=== PATIENT | male | born 2000 | race Caucasian/White ===

== ENCOUNTER 2023-02-20 10:24 | Emergency (ER) | payer OTHER, SELFPAY ==
[2023-02-20 10:25] VITALS: BP 173/85; PULSE 92; RESP 16; TEMP 36.8; O2SAT 98; BMI 33.8
--- NOTE | 2023-02-20 10:27 | NURSING ---
NO OLD EKGS
--- NOTE | 2023-02-20 10:44 | EDS_ITS ---
HPI History of Present Illness Chief Complaint: Chest Pain Detail of Chief Complaint: Typical, nonexertional left-sided chest pain. Resolved. Informant: patient Onset/Context/Timing Onset: Today Activity at onset: gradual Timing: Intermittent Quality: Positive for Sharp Location: Left Chest Current Severity: Gone Maximum Severity: Mild Worsened By: Nothing Relieved By: Nothing Associated Symptoms: Negative for Nausea, Vomiting, Diaphoresis, Dyspnea, Cough, Fever, Lightheadedness, Acid Reflux or Palpitations Narrative Narrative: 22-year-old male history of gynecomastia no other medical problems. 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 It is since resolved. It occurred about 30 minutes ago and was fleeting. Not associated with exertion. No shortness of breath. No cardiac history. No history of DVT or PE nor any risk factors. No leg pain or swelling. No hemoptysis. Currently symptom-free. He was concerned he was having a heart attack. He denies any IV drug use. Prior Similar Symptoms: Yes Recent Illness/Hospitalization: No CVD Risk Factors: Negative for Hypertension, Diabetes, Hypercholesterolemia or Family History 1' </=55 PE Risk Factors: Negative for Recent Travel/Surgery, Recent Immobilization, Prior DVT or PE, Cancer or OCP + Smoking + >/=35 TAD Risk Factors: Negative for Marfan's Syndrome PFSH PFSH Medical History no medical history no medical history Home Medications escitalopram oxalate 20 mg tablet (Lexapro) 20 mg PO DAILY 02/20/23 [History Last Taken 02/20/23] famotidine 20 mg tablet (Pepcid) 20 mg PO DAILY 02/20/23 [History Last Taken Unknown] Allergy/AdvReac Type Severity Reaction Status Date / Time No Known Allergies Allergy Verified 02/20/23 10:25 Family History no significant family his Surgical History no surgical history Social History Smoking Status: Never smoker ROS ROS ED ROS Narrative Denies recent illness. No recent exertional dyspnea or exertional chest pain. Review of Systems ROS Unobtainable: Denies due to encephalopathy Constitutional Constitutional ED: Denies chills or fever(s) ENT ENT ED: Denies ear pain Cardiovascular Cardiovascular: Reports as per HPI and chest pain; Denies palpitations or racing heartbeat Respiratory/Chest Respiratory/Chest: Denies cough, dyspnea or dyspnea on exertion Gastrointestinal Gastrointestinal: Denies abdominal pain, diarrhea, nausea or vomiting Genitourinary Genitourinary ED: Denies dysuria or hematuria Musculoskeletal Musculoskeletal: Denies arthralgias, back pain or myalgias Integumentary Denies abscess Neurologic Neurologic: Denies headache(s) Psychiatric Psychiatric: Denies anxiety Endocrine Endocrinology: Denies cold intolerance Hematologic/Lymphatic Hematologic/Lymphatic: Denies easy bleeding, easy bruising or lymphadenopathy Allergic/Immunologic Allergic/Immunologic ED: Denies mouth swelling, tongue swelling or urticaria EXAM Physical Exam Narrative Exam Narrative: Well-appearing 22-year-old male. Vital signs stable afebrile. Initial blood pressure is elevated 173/85. Pulse ox 90% on room air no hypoxia. H EENT exam unremarkable. Neck nontender no JVD. Lungs clear to auscultation bilaterally. Heart regular rhythm no murmur. Chest wall nontender. Abdomen soft nontender. Back nontender. Moving all 4 extremities. 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 Dorsi plantarflexion intact. Equal symmetrical radial pulses. Calves are nontender without edema or cords. Neurologically is awake and alert with no focal motor deficits. Const Vital Signs: 02/20/23 10:25 02/20/23 10:52 02/20/23 10:54 Temperature 98.2 F 98.3 F Temperature Source Temporal Temporal Pulse Rate 92 63 Respiratory Rate 16 20 H Respiratory Effort Blood Pressure 173/85 H 151/78 H Blood Pressure Mean 114 102 Pulse Ox 98 98 Oxygen Delivery Method Room Air Room Air Room Air 02/20/23 10:55 Temperature Temperature Source Pulse Rate Respiratory Rate Respiratory Effort Normal Blood Pressure Blood Pressure Mean Pulse Ox Oxygen Delivery Method Positive well nourished and well developed; Negative for cachectic, contractures or unkempt General Appearance ED: well developed and NAD; Negative for unkempt, cachectic, contractures or pallor Nutritional Appearance: Negative for cachectic HEENT Reports moist mucous membranes normocephalic and atraumatic; Negative for trauma or tenderness Eyes PERRL and EOMs intact bilaterally General Eye ED: Negative for pale conjunctiva, scleral icterus or other Neck no lymphadenopathy, supple and no JVD General: Negative for tenderness Chest Wall inspection of chest normal and palpation of chest normal Chest: Negative for tenderness or other Resp normal respiratory effort and clear to auscultation bilaterally Effort and Inspection: Negative for respiratory distress Auscultation: Negative for rales, rhonchi or wheezes Cardio regular rate, regular rhythm, S1 normal heart sound, S2 normal heart sound and no murmurs Rate: Negative for bradycardia or tachycardic Rhythm: Negative for abnormal rhythm Peripheral Pulses: pulses 2+ throughout GI normal to inspection, nondistended, normoactive bowel sounds, soft to palpation, non-tender, non-distended and no masses Auscultation: Negative for hyperactive bowel sounds Palpation: Negative for splenomegaly, mass or other Rectal Exam: Negative for heme negative stool Back/Spine no CVA tenderness and no thoracic nor lumbar tenderness General Back: Negative for CVA tenderness Cervical Spine: Negative for cervical spine tenderness Extremity normal to inspection General Extremety ED: Negative for edema or pulses abnormal General Extremity: Negative for edema or pulses abnormal Neuro oriented x3 and CN's II-XII intact bilaterally Sensorium / Orientation: awake, alert, oriented to person, oriented to place and oriented to time; Negative for confused, lethargic or stuporous Motor Exam: strength 5/5 throughout Psych mental status grossly normal Appearance: Negative for unkempt Attitude: No agitated Mood & Affect: Negative for depressed, anxious or tearful Skin no rashes or lesions noted and no wounds General Skin Exam: Negative for jaundice or pallor Rashes: No rashes noted Trauma: Negative for abrasion or laceration Heart Score History: Slightly/Non-Suspicious Age: </= 45 years Risk Factors: No Risk Factors Troponin: </= Normal Limit Score: 0 MDM MDM MDM Narrative Medical decision making narrative: 22-year-old with atypical chest pain. Think this is cardiac. He will undergo a cardiac workup. No factors or history of DVT or PE. Repeat exam patient is doing well at 11:40 PM. He will be discharged home. Chest pain uncertain etiology. I do not think he needs any further testing. History & Record Review Discussion w/independent historian: Patient Additional record(s) reviewed:: Prior inpatient record, Prior outpatient record, Prior ED visit and Prior labs Lab Data Attestation: I reviewed the patient's lab results. Lab results narrative: CBC normal. White count of 6. H&H of 15 and 46. Platelets 226. Chest x-ray normal. Chemistries normal gap of 2 normal BUN of 8 creatinine 0.8. Glucose 105. Troponin 6. Labs: Laboratory Results - last 24 hr 02/20/23 10:47 WBC 6.3 RBC 5.34 Hgb 15.0 Hct 46.7 MCV 87.5 MCH 28.1 MCHC 32.1 RDW Std Deviation 39.0 RDW Coeff of Melonie 12.0 Plt Count 226 MPV 10.3 Immature Gran % (Auto) 0.300 Neut % (Auto) 66.4 Lymph % (Auto) 26.3 [place] % (Auto) 5.1 Eos % (Auto) 1.4 Baso % (Auto) 0.5 Absolute Neuts (auto) 4.2 Absolute Lymphs (auto) 1.66 Nucleated RBC % 0 Sodium 136 Potassium 4.2 Chloride 103 Carbon Dioxide 31.0 Anion Gap 2 L BUN 8 Creatinine 0.88 Estim Creat Clear Calc 167.34 Est GFR (MDRD) Af Amer 141 Est GFR (MDRD) Non-Af 116 BUN/Creatinine Ratio 9.1 L Glucose 105 Calcium 9.2 Troponin I High Sens 6 Radiography Chest X-Ray - ED: 1 View, Read by ED Physician, Read by Radiologist, Heart, Mediastinum, Bony Structures and No Acute Disease Diagnostic Testing: Clinical Impression(s) from Imaging Studies Chest X-Ray 02/20/23 11:00 IMPRESSION: Normal x-ray examination of the chest. Electronically Signed: Nilton Ann MD at 11:26 EST Reading Location ID and State: [address] [place] [address] , Service support , This x-ray, portable, single view shows no acute abnormality. Normal cardiac silhouette. Normal mediastinum. Normal lung [place]. Interpreted by myself. Rhythm Strip Rhythm Strip: Sinus Rhythm Rate: 70 Ectopy: None EKG Initial EKG: Attestation: I personally reviewed and interpreted this EKG as follows: Interpretation: Sinus Rhythm and No Acute Injury Pattern Comments: Normal sinus rhythm rate of 70 no acute signs of TN or ischemia. Incomplete right bundle branch block. No old EKG available for comparison. Prior EKG tracings: not available for review Prior: No Prior Discharge Plan Triage Chief Complaint: Chest Pain ED Provider: Abhilash Garcia Dx/Rx/DC Orders Clinical Impression: History of gynecomastia, Chest pain Instructions: ED Chest Pain, Uncertain Cause Prescriptions: No Action escitalopram oxalate [Lexapro] 20 mg tablet 20 mg PO DAILY famotidine [Pepcid] 20 mg tablet 20 mg PO DAILY Primary Care Provider: Rosy Donovan Referrals: Rosy Donovan, JORDAN [Primary Care Provider] - As Needed Activity Restrictions/Additional Instructions: Your labs, EKG and chest x-ray were all unremarkable. Follow-up with your primary care provider as needed. Disposition Disposition: Home, Self Care
[2023-02-20 10:52] LABS: Absolute Lymphocyte Count 1.66 X10^3/uL (0.83-4.51); Absolute Neutrophil Count 4.2 X10^3/uL (2.0-7.7); Basophil# 0.03 X10^3/uL; Basophil% 0.5 % (0-1); Eosinophil# 0.09 X10^3/uL; Eosinophils% 1.4 % (0-5); Hematocrit 46.7 % (40-54); Lymphocyte # 1.66 X10^3/ul (0.83-4.51); Lymphocyte % 26.3 % (19-41); Mean Corp Hgb Conc 32.1 g/dL (32-36); Mean Corpuscular Hgb 28.1 pg (27.0-32.0); Mean Corpuscular Volume 87.5 fL (80-94); Mean Platelet Vol. 10.3 fl (6.2-12.0); Monocyte# 0.32 X10^3/uL; Monocyte% 5.1 % (0-10); NRBC Flagged by Analyzer 0 % (0-5); Neutrophil # 4.18 X10^3/uL (2.7-7.7); Neutrophil % 66.4 % (47-70); Platelet Count 226 K/mm3 (150-450); Red Blood Count 5.34 M/mm3 (4.6-6.2); White Blood Count 6.3 K/mm3 (4.4-11.0)
[2023-02-20 10:54] VITALS: BP 151/78; PULSE 63; RESP 20; TEMP 36.8; O2SAT 98
--- NOTE | 2023-02-20 11:00 | RAD_ITS ---
STUDY: X-RAY CHEST REASON FOR EXAM: Male, 22 years old. Chest pain TECHNIQUE: Single AP portable view of the chest. COMPARISON: None. FINDINGS: EKG electrodes are seen. The lungs are clear and expanded. There is no demonstrated pleural abnormality. Normal size heart. Normal mediastinum and nazanin. Normal visualized pulmonary arteries. Normal visualized aortic arch and descending thoracic aorta. Normal visualized thoracic spine. Normal visualized ribs, clavicles, and shoulders. There is no demonstrated abnormality of the visualized soft tissue structures of the upper abdomen. RAD/Chest 1 View (Portable) IMPRESSION: Normal x-ray examination of the chest. Electronically Signed: Nilton Ann MD at 11:26 [facility] ,
[2023-02-20 11:14] LABS: Anion Gap 2 (5-15); BUN 8 mg/dL (7-18); BUN/Creat Ratio 9.1 RATIO (10-20); Calcium,Total 9.2 mg/dL (8.5-10.1); Chloride 103 mmol/L (98-107); Creatinine, Serum 0.88 mg/dL (0.70-1.30); EST Glomerular Filtration Rate 116 mL/min (>60); Est Glom Filt Rate - Afr Amer 141 mL/min (>60); Estimated Creatinine Clearance 167.34 ml/min; Glucose 105 mg/dL (74-106); Potassium 4.2 mmol/L (3.5-5.1); Sodium Level 136 mmol/L (136-145); Troponin-I HS 6 pg/mL (3.0-78.0)
== END 2023-02-20 11:53 | disposition home or self-care (01) ==
PROVIDERS: Emergency Provider Emergency Medicine; PCP Physician Assistant; Referring Provider Emergency Medicine; Visit Provider Emergency Medicine
DX: R07.9 Chest pain, unspecified (principal); Z79.899 Other long term (current) drug therapy
CPT/HCPCS: 71045; 80048; 84484; 85025; 93005; 99283; A4216

== ENCOUNTER → 2023-04-21 | Outpatient (CLI) | payer OTHER, SELFPAY ==
--- NOTE | 2023-04-21 08:00 | CT_ITS ---
STUDY: CT FACIAL BONES WITHOUT CONTRAST REASON FOR EXAM: Male, 22 years old. INJURY RADIATION DOSAGE (If Supplied By Facility): CTDIvol = ( 29.38 ) mGy, DLP = ( 598.88 ) mGycm TECHNIQUE: The patient was scanned in a multi detector CT scanner. Sagittal and coronal images were reconstructed. Individualized dose optimization techniques were used for this CT. COMPARISON: None. FINDINGS: Normal soft tissue structures. Normal orbital romero and orbital contents. Normal nasal bones and anterior nasal spine. Normal facial bones. There is no demonstrated fracture. Mucous retention cyst in the maxilla sinuses consistent with chronic sinusitis. CT/Sinus/Facial Bone IMPRESSION: Normal unenhanced CT of the facial bones. Electronically Signed: Arturo Brooks MD at 21:46 EST ,
--- OUTSIDE RECORDS SUMMARY | 2023-04-21 08:00 | XMS RPT_ITS | CCD ---
Author Name Unknown Address [address] [place] [address] Organization [facility] Care Team Providers Care Kiln Charger Name Role Phone SAMANTA DONOVAN Primary Care Unavailable EMANI LEES MD Admitting Unavailable EMANI LEES MD Consulting Unavailable EMANI LEES MD Attending Unavailable SAMANTA DONOVAN Primary Care Unavailable EMANI LEES MD Admitting Unavailable EMANI LEES MD Consulting Unavailable EMANI LEES MD Attending Unavailable PARRISH RING MD Attending Unavailable SAMANTA HOFF Primary Care Unavailable PARRISH RING MD Attending Unavailable DONOVAN SAMANTA J Consulting Unavailable PARRISH RING MD Admitting Unavailable PARRISH RING MD Primary Care Unavailable PROVIDER, UNKNOWN Consulting Unavailable DONOVAN, SAMANTA J Primary Care Unavailable DONOVAN, SAMANTA J Consulting Unavailable DONOVAN, SAMANTA J Attending Unavailable DONOVAN, SAMANTA J Admitting Unavailable PROVIDER, UNKNOWN Consulting Unavailable EMANI LEES Admitting Unavailable EMANI LEES Primary Care Unavailable EMANI LEES Attending Unavailable DONOVAN, SAMANTA J Consulting Unavailable PROVIDER, UNKNOWN Consulting Unavailable DONOVAN, SAMANTA J Primary Care Unavailable DONOVAN, SAMANTA J Consulting Unavailable DONOVAN, SAMANTA J Attending Unavailable DONOVAN, SAMANTA J Admitting Unavailable PROVIDER, UNKNOWN Consulting Unavailable Zion MOFFETT Samanta J Unavailable [phone] Samanta Donovan PA-C J Unavailable Counseling Provider Unavailable Unavailable Kvng GUZMAN, Dr. Renetta Varner Unavailable Cardiology Provider Unavailable Unavailable Endocrinology Provider Unavailable Unavailab le Dermatology Provider Unavailable Unavailable Karina Zhang LPN Unavailable Jack Julio MD Unavailable Lomax BIOINFORMATICS SUPPORT SPECIALIST, Renetta Unavailable Unavailable Garcia MA, Nazia Unavailable Unavailable Venus BIOINFORMATICS SUPPORT SPECIALIST, Anna Unavailable Unavaila eve Nieto BIOINFORMATICS SUPPORT SPECIALIST, Enma Unavailable Unavailable Nisreen DIAZ, Keysha Pereyra Unavailable Unavaila ble Corky BIOINFORMATICS SUPPORT SPECIALIST, Rafaela Ceasar Unavailable Unavailab le [place] BIOINFORMATICS SUPPORT SPECIALIST, Jessy Thomas Unavailable Unavailab froilan Monterroso MA, Enma Unavailable Unavailable Wengeroswaldo BIOINFORMATICS SUPPORT SPECIALIST, Sun Unavailable Unavailabl e Unavailable Unavailable Medications Current Medications Medication Drug Class(es) Dates Sig (Normalized) Sig (Original) amoxicillin 875 mg / clavulanate 125 mg oral tablet (12 sources) Penicillin-class Antibacterial Start: 03-16-2023 amoxicillin 875 mg-potassium clavulanate 125 mg tablet ; 1 (one) Tablet BID for 10 days Quantity: 20 {Tablet} Refills: 0 Ordered: 16-Mar-2023 ZUHAIR Donovan Start: 16-Mar-2023 Completed/Discontinued Medications Medication Drug Class(es) Dates Sig (Normalized) Sig (Original) 0.8 ml adalimumab 50 mg/ml auto-injector (6 sources) Tumor Necrosis Factor Patricia Humira Pen 40 MG/0.8ML Subcutaneous Pen-injector Kit ; weekly (40 MG/0.8ML) Status: Inactive amoxicillin 500 mg oral tablet (12 sources) Penicillin-class Antibacterial Start: 09-06-2016 End: 09-16-2016 take 1 tablet by mouth three times daily Amoxicillin 500 MG Oral Tablet ; 1 (one) Tablet TID for 10 days Quantity: 30 {Tablet} Refills: 0 Ordered: 06-Sep-2016 ZUHAIR Donovan Start: 06-Sep-2016 End: 16-Sep-2016 Status: Inactive Problems Active Problems Problem Classification Problem Date Documented Da te Episodic/Chronic Abdominal pain (20 sources) Epigastric pain; Translations: [Epigastric pain] 02-21-2023 Episodic Anxiety disorders (20 sources) Anxiety; Translations: [Anxiety disorder, unspecified] 02-21-2023 Chronic Cardiac dysrhythmias (15 sources) Atrial premature depolarization; Translations: [Premature atrial contraction] Onset: 12-21-2022 Chronic Cardiac dysrhythmias (12 sources) Bradycardia; Translations: [Bradycardia, unspecified] 02-21-2023 Episodic Coma; stupor; and brain damage (18 sources) Daytime somnolence; Translations: [Somnolence] 02-21-2023 Episodic Fracture of upper limb (20 sources) Fracture of clavicle; Translations: [Fracture of unspecified part of unspecified clavicle, initial encounter for closed fracture] 11-15-2018 Episodic Inflammation; infection of eye (except that caused by tuberculosis or sexually transmitteddisease) (12 sources) Conjunctivitis; Translations: [Unspecified conjunctivitis] 12-20-2017 Episodic Intracranial injury (12 sources) Concussion injury of body structure; Translations: [Concussion, unspecified] 12-27-2017 Episodic Malaise and fatigue (12 sources) Fatigue; Translations: [Other fatigue] 02-24-2022 Episodic Nonmalignant breast conditions (20 sources) Hypertrophy of breast; Translations: [Gynecomastia] Onset: 05-12-2022 02-21-2023 Episodic Nonspecific chest pain (12 sources) Chest pain; Translations: [Chest pain, unspecified] 02-21-2023 Episodic Nutritional deficiencies (12 sources) Vitamin D deficiency; Translations: [Vitamin D deficiency, unspecified] 02-21-2023 Chronic Other and unspecified benign neoplasm (1 source) Benign neoplasm of pituitary gland; Translations: [Benign neoplasm of pituitary gland] Onset: 12-21-2022 Episodic Other and unspecified benign neoplasm (15 sources) Pituitary microadenoma; Translations: [Benign neoplasm of pituitary gland] 02-21-2023 Episodic Other circulatory disease (12 sources) Pulse irregular; Translations: [Other specified symptoms and signs involving the circulatory and respiratory systems] 02-21-2023 Episodic Other ear and sense organ disorders (6 sources) Otalgia, left ear; Translations: [Otalgia, unspecified] 11-08-2022 Episodic Other endocrine disorders (3 sources) Disorder of pituitary gland, unspecified; Translations: [DISORDER PITUITARY GLAND UNS] Onset: 05-12-2022 Chronic Other gastrointestinal disorders (20 sources) Heartburn; Translations: [Heartburn] 02-21-2023 Episodic Other inflammatory condition of skin (20 sources) Psoriasis; Translations: [Psoriasis, unspecified] 02-21-2023 Chronic Other injuries and conditions due to external causes (6 sources) Injury of right ankle; Translations: [Unspecified injury of right ankle, initial encounter] 02-01-2016 Episodic Other liver diseases (18 sources) Elevated liver enzymes level; Translations: [Abnormal levels of other serum enzymes] 02-21-2023 Episodic Other lower respiratory disease (1 source) Shortness of breath; Translations: [Shortness of breath] Onset: 12-21-2022 Episodic Other lower respiratory disease (18 sources) Snoring; Translations: [Snoring] 02-21-2023 Episodic Other non-traumatic joint disorders (6 sources) Pain in wrist; Translations: [Pain in unspecified wrist] 12-18-2016 Episodic Other nutritional; endocrine; and metabolic disorders (12 sources) Obesity; Translations: [Obesity, unspecified] 02-21-2023 Chronic Other screening for suspected conditions (not mental disorders or infectious disease) (3 sources) Other specified abnormal findings of blood chemistry; Translations: [OTH SPEC ABNORMAL FINDINGS BLD CHEM] Onset: 03-06-2022 Episodic Other skin disorders (12 sources) Epidermoid cyst; Translations: [Epidermal cyst] 02-21-2023 Episodic Other skin disorders (18 sources) Hidradenitis suppurativa; Translations: [Hidradenitis suppurativa] 02-21-2023 Episodic Other skin disorders (6 sources) Skin lesion; Translations: [Disorder of the skin and subcutaneous tissue, unspecified] 11-26-2017 Episodic Other upper respiratory disease (12 sources) Allergic rhinitis; Translations: [Allergic rhinitis, unspecified] 02-21-2023 Chronic Other upper respiratory infections (18 sources) Sinusitis; Translations: [Chronic sinusitis, unspecified] 12-27-2017 Chronic Other upper respiratory infections (18 sources) Upper respiratory infection; Translations: [Acute upper respiratory infection, unspecified] 04-13-2021 Episodic Otitis media and related conditions (18 sources) Otitis media of right ear; Translations: [Otitis media, unspecified, right ear] 08-11-2020 Episodic Residual codes; unclassified (12 sources) Restless sleep; Translations: [Sleep disorder, unspecified] 02-21-2023 Episodic Skin and subcutaneous tissue infections (18 sources) Furuncle; Translations: [Furuncle, unspecified] 03-05-2020 Episodic Unclassified (6 sources) Ear pain - The onset of the pain has been sudden (Left ear and top of jaw by the ear starting hurting all of a sudden. Advises he can feel in the jaw and up in the ear as well. Started a couple weeks ago and some swelling on right side near glands or lymph nodes under jawline.) and has been occurring in an intermittent (pain comes and goes and pain fluctuates as well) pattern for 2 weeks. The course has been constant. The pain is described as a moderate sharp pain and stabbing. The pain is described as being located in the inner ear. The pain is felt in the left ear. Note for Ear pain : Often feels like it is hard to open up his jaw to eat. Sometimes it is more localized to the ear. Does hear some clicking in his jaw. No pain to bite down. Pain did not initially start while he was actively eating. Has pain along right lower jawline but rest of pain is just anterior to left ear. Did take NSAID once - wasn't sure that it helped.Is due for dental exam but denies tooth pain. 11-08-2022 Unclassified (6 sources) Follow up for chronic condition - The patient is here for follow-up of anxiety. The patient always takes the prescribed medications. No side effects noted. The patient has an active lifestyle but no regular exercise program. The patient states that weight is unchanged and in general mood has improved. Note for Chronic condition follow-up : Did counseling once only. 09-06-2022 Unclassified (6 sources) Follow up for multiple chronic conditions - The patient is here for follow-up of anxiety and GERD. The patient always takes the prescribed medications. No side effects noted (pt has not taken hydroxyzine in awhile wants to discuss this with you). The patient has an active lifestyle but no regular exercise program. The patient's dietary compliance is fairly good usually adhering to recommendations. The patient states that there is no recent angina or dyspnea, weight has increased (up 1 lb), in general mood has improved and they do not have headaches. Note for Multiple chronic conditions follow-up : Luz tried to overdose recently and patient found him. He was completely blindsided but this as he didn't realize there was an issue. Is having trouble processing how he is feeling. Denies suicidal thoughts himself. Staying with his family this past week. Has fear over work situation too as needs to work but also will need to be able to monitor fiance until he can return to work. 06-05-2022 Unclassified (6 sources) Follow up for multiple chronic conditions - The patient is here for follow-up of anxiety and obesity. The patient always takes the prescribed medications. No side effects noted. The patient has an active lifestyle but no regular exercise program. The patient states that weight is unchanged, in general mood has improved and they do not have headaches. The patient states that the disease has no overall impact. Note for Multiple chronic conditions follow-up : Doing well. 02-24-2022 Unclassified (6 sources) Follow up for chronic condition - The patient is here for follow-up of anxiety. The patient always takes the prescribed medications. No side effects noted. The patient engages in regular exercise program 3-5 times per week. The patient states that depression has worsened (Pt has a lot going on right now). The patient states that the disease has mild emotional impact. Note for Chronic condition follow-up : Relationship issues and other stressors.Hasn't seen derm or endo yet.Today is a good day but has been having very high anxiety. Had a panic attack the other day - lots of anxious thoughts making it hard to concentrate on other things. 08-26-2021 Unclassified (6 sources) Follow up for multiple chronic conditions - The patient is here for follow-up of anxiety and obesity. The patient always takes the prescribed medications. No side effects noted. The patient has an active lifestyle but no regular exercise program. The patient states that weight is unchanged and mood is unchanged (doing well with the med he is on). The patient states that the disease has no overall impact. Note for Multiple chronic conditions follow-up : Hasn't been on Humira recently due to trouble getting it refilled. 02-18-2021 Unclassified (6 sources) Follow up for chronic condition - The patient is here for follow-up of anxiety. The patient always takes the prescribed medications. No side effects noted. The patient has an active lifestyle but no regular exercise program. The patient states that depression has worsened (is stressed out more - moving out of his house soon which he views is a good thing but stressful; mom says he is a restless sleeper and will talk a lot in his sleep, pt will sleep a lot but not feel rested; snores). Note for Chronic condition follow-up : Drinking 300-400mg of caffeine daily. Getting mad about small things. Some depression.No suicidal thoughts.No smoking or vaping or drug use. 05-17-2020 Unclassified (6 sources) Follow up for chronic condition - The patient is here for follow-up of anxiety (has been out of venlafaxine for 5 days and said his anxiety has been a lot worse for the past month; said pills worked for a while but since he has had even more stuff on his plate it is worse. Said he has had more change like he flies off the handle at things; he has 2 jobs and has been working a lot; he graduated and plans to go to college but doesn't have the details worked out; no suicidal thoughts, but there was a day that he was tired of everything. Sleep fluctuates because his work schedule is all over.). The patient has an active lifestyle but no regular exercise program. The patient states that breathing effort is stable, there is no recent angina or dyspnea, there are no vision changes or weakness and they do not have headaches. 09-26-2019 Unclassified (1 source) Follow up for chronic condition - The patient is here for follow-up of anxiety. The patient always takes the prescribed medications. No side effects noted. The patient has an active lifestyle but no regular exercise program. The patient's dietary compliance is fairly good usually adhering to recommendations. The patient states that breathing effort is stable, there is no recent angina or dyspnea, there are no vision changes or weakness and in general mood has improved. 11-26-2017 Unclassified (1 source) [ADDITIONAL REASON] boil - Patient is here with a boil like spot on his inner right thigh. Not sure how long it has been there. It just is not going away and is sore. Has used triple antibiotic ointment and peroxide. He also woke up yesterday with blisters on his neck on the right side. Some have seeped. Not sure where it came from. Does play football. No fever or nausea. Initially the area on his leg looked like a pimple. He has been squeezing pus out of it. 11-26-2017 Unclassified (5 sources) boil - Patient is here with a boil like spot on his inner right thigh. Not sure how long it has been there. It just is not going away and is sore. Has used triple antibiotic ointment and peroxide. He also woke up yesterday with blisters on his neck on the right side. Some have seeped. Not sure where it came from. Does play football. No fever or nausea. Initially the area on his leg looked like a pimple. He has been squeezing pus out of it. 11-26-2017 Unclassified (5 sources) [ADDITIONAL REASON] Follow up for chronic condition - The patient is here for follow-up of anxiety. The patient always takes the prescribed medications. No side effects noted. The patient has an active lifestyle but no regular exercise program. The patient's dietary compliance is fairly good usually adhering to recommendations. The patient states that breathing effort is stable, there is no recent angina or dyspnea, there are no vision changes or weakness and in general mood has improved. 11-26-2017 Unclassified (3 sources) Follow up for multiple chronic conditions - The patient is here for follow-up of anxiety and obesity. The patient always takes the prescribed medications. No side effects noted. The patient has an active lifestyle but no regular exercise program. The patient's out of office blood pressure checks occur occasionally. The patient states that in general mood has improved. The patient states that the disease has no overall impact. Note for Multiple chronic conditions follow-up : Saw cardiology - has event monitor that he is currently wearing. Scheduled to have CT coronary angiography in April.Was given metoprolol succinate 25mg which he hasn't started yet.Has been having sinus pressure/pain with rhinitis x 1 week. 03-16-2023 Past or Other Problems Problem Classification Problem Date Documented Da te Episodic/Chronic Unclassified (4 sources) Follow up consultation - The patient is here to follow-up after Emergency Room/Urgent Care on : (02/21/2023). Current symptoms include none (slight sensation in his chest but no pain). Note for Consultation follow-up : Pt has an appt with cardio on Sunday.Has been told by endo that gynecomastia could cause some discomfort so has had that occasionally.[place] dizzy while he was driving and heart was pounding - pulled over and called 911. Started to improve but still dizzy so went to the hospital. By the time he got to the ER he felt better. Hasn't had since. Wasn't feeling anxious at the time of episode and didn't feel similar at all to his previous panic attacks.Had coffee in am and then finished energy drink after that by 6am (has been trying to cut back on energy drinks). Episode happened around 11am.No recent heartburn. 02-21-2023 Unclassified (4 sources) [ADDITIONAL REASON] Transition into care - The patient is transitioning into care from an emergency room and a summary of care was reviewed. 02-21-2023 Unclassified (6 sources) Heartburn - The onset of the heartburn has been acute and has been occurring in an intermittent pattern for 2 months. The course has been constant. The heartburn is characterized as tightness. The heartburn is described as being located in the epigastrium (feels like the food does not go all the way down to his stomach). Note for Heartburn : Pt had been given Pepcid and that helped in the past but does not take it anymore and now sx are getting worse. Pt also has a rash on his elbows, is not itchy just dry skin. Pt has noticed wt gain and feels like he is not over eating.Tired, weight gain, and decreased sex drive - wondering if he should have hormone testing done. 05-20-2021 Unclassified (6 sources) Cold Symptoms - Symptoms include nasal congestion, purulent discharge, ear fullness, sore throat, productive cough (on exertion) and headache (Feels like a migraine, nauseated), but do not include fever. The onset was gradual 4 day(s) ago. The symptoms occur constantly. The patient describes this as moderate in severity and worsening. The patient is not currently being treated for this problem. The patient has been exposed to an individual with similar symptoms (maybe at work). Note for Upper respiratory infection : There has been covid at work.Feels similar to how he felt when he had covid in the past. 04-13-2021 Unclassified (6 sources) Cold Symptoms - Symptoms include sneezing, nasal congestion, runny nose, non-purulent sputum, ear fullness, sore throat and headache, but do not include dry cough or fever. The onset was sudden 3 day(s) ago. The symptoms occur constantly. The patient describes this as moderate in severity and unchanged. The patient is not currently being treated for this problem. The patient has not been exposed to an individual with similar symptoms. Medical history includes recurrent sinusitis. Note for Upper respiratory infection : Pt had Covid test done today at [place], no results yet. Pt started on Humira weekly per derm. 08-11-2020 Unclassified (6 sources) Boils - Patient was last seen back in November for boils, was prescribed Bactrim DS BID for 10 days and referred to Derm (pt never saw Derm and does not have appt scheduled at this time). States that one area did resolve and other areas decreased in size but did not resolve. Has multiple that are located front/inner thighs and buttocks. Yesterday, 1-2 areas did seep/drain, other day was a yellowish-brown drainage. Usually not itchy but are painful/sore when they flare-up. The one on thigh is better than it was yesterday. No fever.Also has heartburn and feels like foot get stuck for awhile in epigastric area. Mom with hiatal hernia and he is questioning if he has this as well. 03-05-2020 Unclassified (6 sources) boil - Pt is here with complaints of getting boils again in between his legs. Has 2 boils on his inner right thigh and they started to drain. He tried to squeeze stuff out of them. They are red and sore. He also has few of them on both sides of his buttocks that have been there for a while and said that they are hard, red, and sore. A couple of them have came to a head. He was using hibiclens but it dried his skin out really bad so he stopped that. He is showering daily and also keeping it clean and dry in the area. He said he even bought different underwear to see if that helped. Has been in before for these and you tested it and it was normal hazel and you also tested his a1c which was 5. These were done in apr. 11-27-2019 Unclassified (6 sources) check infection in leg - Patient is here to have something that looks like a boil for 3 days on the inner right thigh examined. It is swollen and warm to touch. Is doing warm compressed and got prid to use per pharmacist. No fever or nausea. Has been getting these intermittently over the past year. Dad with history of MRSA - not recently. 04-30-2019 Unclassified (6 sources) recheck clavicle fx - Pt had clavicle fx 4-5 weeks ago, pt had a follow up rx done on 10/28/18. 11-04-2018 Unclassified (6 sources) re check fracture - Some muscle tightness in the mornings. Pain rated at a 4 out of 10. 10-07-2018 Unclassified (6 sources) Well child visit #4 - 13 to 17 years - The child is here for a 16 to 17 year well-child visit. The primary caregiver is the mother and father. The patient has a balanced diet and is eating a variety of foods. There are no eating difficulties. Meals/day: 3 (1-3 meals daily, it varies). The child sleeps 4 (4-5 hours lately) hours at night. The child performs well in school, interacts well with peers and participates in extracurricular activities (football). Note for Well child visit #4 - 13 to 17 years : Is currently taking Paroxetine 20mg 1.5 tab daily. Feels that the medication is not helping as well and would like to discuss today possibly changing medications.Is here today for a sports physical. 09-27-2018 Unclassified (6 sources) recheck - Patient is here wtih his mom to be rechecked from appointment on 12/20/17 for concussion and sinusitis. States he is feeling better; only occasional mild headache and none now. Mom said that in past 2 days he has improved a lot. No further sensitivity to light or sound. No dizziness. Normal speech and concentration. He is still taking his antibiotic. 12-27-2017 Unclassified (6 sources) Follow up consultation - The patient is here to follow-up after Emergency Room/Urgent Care (for concussion) on : (12/18/17). Current symptoms include headache (Light and sound sensitivity; located in entire head; pressure behind eyes; mom said that yesterday it looked like he had pink eye - blood shot with drainage; he is very irritable) and nausea a little the first day and next day.. Note for Consultation follow-up : Has been taking 800mg ibuprofen and they gave him zpak for sinus infection that they saw on CT scan.Symptoms initially started the evening after he made hits at football practice. Mom said he was absolutely miserable. 12-20-2017 Unclassified (6 sources) [ADDITIONAL REASON] Transition into care - The patient is transitioning into care from an emergency room and a summary of care was reviewed (partial). 12-20-2017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
== END | disposition home or self-care (01) ==
PROVIDERS: PCP Physician Assistant
DX: S02.5XXA Fracture of tooth (traumatic), initial encounter for closed fracture (principal); X58.XXXA Exposure to other specified factors, initial encounter; Y99.0 Civilian activity done for income or pay
CPT/HCPCS: 70486